=== PATIENT | male | born 1990 | race Caucasian/White ===

== ENCOUNTER 2018-06-13 08:02 | Emergency (ER) | payer SELFPAY ==
[2018-06-13 08:05] VITALS: BP 166/94; PULSE 88; RESP 17; TEMP 36.4; O2SAT 99; BMI 39.3
--- NOTE | 2018-06-13 08:16 | ED.VISSUMM ---
- ER Visit Summary Date of Service: 06/13/18 Chief Complaint: Constipation History of Present Illness: The patient is a 27 M who presents with constipation. He tells me he has had constipation for over a year. But then he says he has dealt with it all his life. He states he does have a bowel movement every day but is only a little bit. He has taken nothing for it recently but has tried MiraLAX, GoLYTELY and Ex-Lax in the past. He has never had a colonoscopy. He came in today because he is tired of dealing with it. Physical Examination: Vital signs reviewed. HEENT exam unremarkable. Heart is regular rate and rhythm without murmurs. Lungs are clear to auscultation. Abdomen is soft and nontender. Extremities reveal no edema. Skin exam normal. Neurologic exam normal. Test Results: KUB reveals moderate stool load but no evidence of obstruction Emergency Department Course and Treatment: Patient does have constipation with no evidence of obstruction. He will be treated with mag citrate at home Treatment Plan: [] Disposition: Discharge Impression: Constipation This note was generated with [employer] dictation software. It may contain incorrect words, spelling, and punctuation that were not noted in review of the chart prior to signing ED Disposition - Plan for ED Patient: Chief Complaint: Constipation Referrals: Care Physician,No Primary [Primary Care Provider] -
--- NOTE | 2018-06-13 08:20 | ED.DCSUM_ITS ---
- ER Visit Summary Date of Service: 06/13/18 Chief Complaint: Constipation History of Present Illness: The patient is a 27 M who presents with constipation. He tells me he has had constipation for over a year. But then he says he has dealt with it all his life. He states he does have a bowel movement every day but is only a little bit. He has taken nothing for it recently but has tried MiraLAX, GoLYTELY and Ex-Lax in the past. He has never had a colonoscopy. He came in today because he is tired of dealing with it. Physical Examination: Vital signs reviewed. HEENT exam unremarkable. Heart is regular rate and rhythm without murmurs. Lungs are clear to auscultation. Abdo men is soft and nontender. Extremities reveal no edema. Skin exam normal. Neurologic exam normal. Test Results: KUB reveals moderate stool load but no evidence of obstruction Emergency Department Course and Treatment: Patient does have constipation with no evidence of obstruction. He will be treated with mag citrate at home Treatment Plan: [] Disposition: Discharge Impression: Constipation This note was generated with [employer] dictation software. It may contain incorrect words, spelling, and punctuation that were not noted in review of the chart prior to signing ED Disposition - Plan for ED Patient: Chief Complaint: Constipation Referrals: Care Physician,No Primary [Primary Care Provider] -
--- NOTE | 2018-06-13 08:40 | RAD_ITS ---
STUDY: X-RAY - ABDOMEN/PELVIS REASON FOR EXAM: Male, 27 years old. Constipation. TECHNIQUE: Two AP supine views of the abdomen and pelvis. COMPARISON: Prior comparison studies are not available for review at this time. FINDINGS: Normal visualized lung bases. There is an unremarkable bowel gas pattern. There is no demonstrated free abdominal air. There is no radiographic evidence for organomegaly, mass, dilated bowel or pathologic calcifications. Skeletal structures are within normal limits. Normal soft tissue structures. Normal visualized osseous structures. RAD/Abdomen Single View IMPRESSION: No radiographic evidence of acute intra-abdominal disease. Electronically Signed: Liz Bunn MD at 9:10 EST , Service support ,
--- NOTE | 2018-06-13 08:54 | ED.DEP ---
ED Disposition - Plan for ED Patient: Disposition: Home or Assisted Living Chief Complaint: Constipation Instructions: ED Constipation Prescriptions: Magnesium Citrate [Citrate Of Magnesia] 300 ml PO X1 #1 bottle Referrals: Care Physician,No Primary [Primary Care Provider] -
== END 2018-06-13 09:03 | disposition home or self-care (01) ==
PROVIDERS: Emergency Provider Emergency Medicine
DX: K59.00 Constipation, unspecified (principal); Z72.0 Tobacco use
CPT/HCPCS: 74018; 99282

== ENCOUNTER 2019-04-03 22:36 | Emergency (ER) | payer OTHER, SELFPAY ==
[2019-04-03 22:37] VITALS: BP 150/79; PULSE 106; RESP 16; TEMP 36.9; O2SAT 99; BMI 38.2
--- NOTE | 2019-04-03 22:43 | ED.DCSUM_ITS ---
History of Present Illness Chief Complaint: Lower Extremity Injury Informant: Patient Onset: Today Context: Sudden Onset Timing: Continuous Current Severity: Moderate Maximum Severity: Moderate Narrative: The patient presents to the emergency department with right ankle injury. Patient states he was walking about 3:00 this afternoon. He suffered an inversion injury of his ankle stepping on a sidewalk. He states he felt something pop. Since then, he said some bruising into his foot. He has had some pain with bearing weight. He denies any history of prior fracture. He denies other injury. He has not taken anything for his pain. Prior similar symptoms: No Recent Illness/Hospitalization: No Past Medical History - Allergies and Home Meds Allergies/Adverse Reactions: Allergies No Known Allergies Allergy (Verified 06/13/18 08:04) Primary Care Physician: Daniel Pope MD [STAFF PHYSICIAN] - Prior records reviewed: Yes Past Medical History: None Surgical History: no surgical history Smoking Status: Current every day smoker Review of Systems General: Denies: Chills, Fever, Sweats Eyes: Denies: Visual changes - bilaterally, Diplopia ENT: Denies: Rhinorrhea, Sore throat Cardiovascular: Denies: Chest pain, Palpitations Respiratory: Denies: Dyspnea, Cough, Dyspnea on exertion Gastrointestinal: Denies: Abdominal pain, Nausea, Vomiting, Diarrhea, Melena, Hematochezia Genitourinary: Denies: Dysuria, Hematuria, Frequency Musculoskeletal: Denies: Back pain, Extremity Pain Skin: Denies: Rash, Wounds Neurological: Denies: Headache, Weakness, Numbness Physical Exam Inital Vital Signs reviewed: Yes General: Well nourished, Well developed, No Acute Distress Head: Normocephalic, Atraumatic Eyes: Perrl, EOMI ENT: Moist mucous membranes, No rhinorrhea Neck: Supple, Nontender Cardiovascular: Regular rate, Regular rhythm, No murmurs Respiratory: No distress, CTA bilaterally, Chest nontender Abdomen: Soft, Nontender, Nondistended, Normal bowel sounds Back: Nontender, Normal Inspection Extremities: No edema, Tenderness - Right lateral malleolus. No gross laxity. Coker negative. 2+ pulses. No pain at the proximal fibula. No pain at the head of the fifth metatarsal. Skin: Normal color, No rash Neurological: Alert, Oriented x3, Cranial nerves II-XII grossly intact, Normal Strength, Normal Sensation Psychological: Normal affect, Normal Mood Diagnostic/Tx/Re-eval X-rays were obtained of the ankle. They were reviewed by myself. There is no evidence of acute fracture. Joint spaces are preserved. - Medical Decision Making The patient presents with ankle injury. X-rays were obtained which show no evidence of acute fracture. I do feel that his symptoms are likely secondary to ligamentous strain. He is placed in an Aircast. Ligament crutches and anti- inflammatories. He will be discharged home. Impression 1. Right lateral ankle sprain ED Disposition - Plan for ED Patient: Instructions: Sprain, Ankle, with X-Ray Prescriptions: Naproxen [Naprosyn] 500 mg PO BID PRN #20 tab Prescription Printed Referrals: Daniel Pope MD [STAFF PHYSICIAN] -
--- NOTE | 2019-04-03 22:43 | RAD_ITS ---
STUDY: X-RAY - RIGHT ANKLE REASON FOR EXAM: Male, 28 years old. Pain. TECHNIQUE: 3 view(s) of the ankle. COMPARISON: None. FINDINGS: Normal visualized distal tibia and fibula. Normal medial and lateral malleoli. Normal tibiotalar articulation and ankle mortise. Normal visualized talus and calcaneus. The visualized subtalar, talonavicular, calcaneocuboid and tarsal articulations are normal. There is no demonstrated fracture. The soft tissue structures are unremarkable. RAD/Ankle min 3 Views IMPRESSION: Normal x-ray examination of the ankle. Electronically Signed: Michael Alexander MD at 23:03 EDT , Service support ,
== END 2019-04-03 23:14 | disposition home or self-care (01) ==
PROVIDERS: Emergency Provider Emergency Medicine
DX: S93.401A Sprain of unspecified ligament of right ankle, initial encounter (principal); X50.1XXA Overexertion from prolonged static or awkward postures, initial encounter; Y93.9 Activity, unspecified; Y92.9 Unspecified place or not applicable; F17.200 Nicotine dependence, unspecified, uncomplicated
CPT/HCPCS: 73610; 99284

== ENCOUNTER 2019-07-28 10:16 | Emergency (ER) | payer SELFPAY ==
[2019-07-28 10:17] VITALS: BP 157/92; PULSE 85; RESP 17; TEMP 37; O2SAT 98; BMI 38.9
--- NOTE | 2019-07-28 10:53 | RAD_ITS ---
STUDY: X-RAY CHEST REASON FOR EXAM: Male, 28 years old. Patient reports chest tightness x 3 weeks that radiates into neck and amp; back -- patient also states deep cough and sob at night TECHNIQUE: PA and lateral views of the chest. COMPARISON: None. FINDINGS: The lungs are clear and expanded. Scattered calcified granulomas. There is no demonstrated pleural abnormality. Normal size heart. Normal mediastinum and cristian. Normal visualized pulmonary arteries. Normal visualized aortic arch and descending thoracic aorta. Normal visualized thoracic spine. Normal visualized ribs, clavicles, and shoulders. There is no demonstrated abnormality of the visualized soft tissue structures of the upper abdomen. RAD/Chest PA and Lateral IMPRESSION: Scattered calcified granulomas. Electronically Signed: Sherif Perez, at 11:26 EST , Service support ,
--- NOTE | 2019-07-28 11:36 | ED.VISSUMM ---
- ER Visit Summary Date of Service: 07/28/19 Chief Complaint: Chest pain History of Present Illness: The patient is a 28 M with no primary care physician. He reports he has left-sided chest pain that began 2 weeks ago. Is a continuous tightness. He states is 4-10 worsened to 10 currently. It is worse at night when he is laying down. Is much worse if he lays on his left side. Is relieved by laying on his right side. He denies any change with exertion or movement. He denies any change with breathing. He denies any shortness of breath. Patient denies any recent trauma. No fall, MVA, or change in activity. Patient does complain of a subjective fever. He denies any chills. He has a chronic cough that worsened 2 weeks ago. Is productive white sputum without blood. Physical Examination: Vitals: Stable. Afebrile. General: Well-nourished and well-developed. Head: Normocephalic atraumatic. Neck: Supple, no lymphadenopathy. No JVD. Nontender. Cardiovascular: Regular rate and rhythm. No murmurs. Respiratory: No respiratory distress. Clear to auscultation bilaterally. Mild tenderness palpation over the upper chest on the left that does reproduce his pain Abdominal: Soft, nontender, nondistended, normal bowel sounds. No guarding, rebound, or peritoneal signs. Back: Nontender. Extremities: Nontender, no edema. Skin: Normal color, no rash. Neurologic: Alert and oriented ?3. Cranial nerves II through XII are intact. Normal strength and sensation. Psych: Normal affect. Test Results: Clinical Impression(s) from Imaging Studies Chest X-Ray 07/28/19 10:53 IMPRESSION: Scattered calcified granulomas. Electronically Signed: Sherif Chris, at 11:26 EST , Service support , Emergency Department Course and Treatment: Patient is resting comfortably and refused pain medications. Treatment Plan: Patient be discharged with symptomatic care. Instructed to follow the [facility] clinic in 1 week if not improving. Return to the emergency department for any worsening symptoms. Disposition: To home in improved and stable condition. Impression: 1. Chest wall pain. This note was generated with Dragon dictation software. It may contain incorrect words, spelling, and punctuation that were not noted in review of the chart prior to signing ED Disposition - Plan for ED Patient: Disposition: Home or Assisted Living Instructions: CHEST PAIN, NonCardiac, CONSTIPATION (Adult) Referrals: Stefani Quinn [NON-STAFF] - 1 Week if not improving Additional Instructions: 3 things going to her bowel habits. Drink plenty of water. Take a fiber supplement, like Metamucil, daily. Get exercise. Natural ways to help with your bowels are pears, peaches, prunes, plums, or apricots. These can be canned. Another way to help with your bowels is ice breakers candy. Eat 5 of these. If an hour later you have not had a bowel movement. Eat another 5. You will not get through a can of ice breakers without having a bowel movement.
[2019-07-28 11:49] VITALS: BP 127/66; PULSE 59; RESP 16; O2SAT 99
== END 2019-07-28 11:50 | disposition home or self-care (01) ==
LOC: ED 11:00
PROVIDERS: Emergency Provider Emergency Medicine
DX: R07.89 Other chest pain (principal); R05 Cough; Z72.0 Tobacco use; Z79.899 Other long term (current) drug therapy
CPT/HCPCS: 71046; 99282